=== PATIENT | female | born 2000 | race African-American/Black ===

== ENCOUNTER 2021-07-19 00:29 | Emergency (ER) | payer OTHER ==
[~2021-07-19] VITALS: Ht 165.1 cm; Wt 69.9 kg
== END 2021-07-19 01:14 | disposition home or self-care (01) ==
LOC: ER 00:32
DX: R05.9 Cough, unspecified (principal); J30.2 Other seasonal allergic rhinitis; F17.210 Nicotine dependence, cigarettes, uncomplicated
CPT/HCPCS: 99282